=== PATIENT | female | born 1960 | race Caucasian/White ===

== ENCOUNTER 2017-06-24 21:06 | Emergency (ER) | payer OTHER ==
[~2017-06-24] VITALS: Ht 162.6 cm; Wt 126.3 kg
[~2017-06-24 21:06] MED LIST: LISI-729 PO; METF-383 PO; SIMV40TA2 PO
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
[2017-06-24 21:20] VITALS: TEMP 37; Ht 162.6 cm; Wt 126.3 kg
[2017-06-24] MEDS ORDERED: SODIUM CHLORIDE 0.9% 1000ML 1,000 ML IV STA (21:21)
[2017-06-24 21:41] LABS: ISTAT CREATININE 1.1 mg/dl (0.6-1.3); ISTAT HEMOGLOBIN 13.3 g/dl (12.0-16.0); ISTAT IONIZED CALCIUM 1.17 mmol/l (1.12-1.32)
[2017-06-24 21:45] LABS: BASO % 0.1 %; BASO ABS # 0.01 K/uL (0-0.2); COMPLETE YES; EOS % 2.1 %; HEMATOCRIT 38.9 % (37-47); IG% 0.1 %; LYMPH % 16.5 %; LYMPH ABS # 1.18 K/uL (1.2-3.4); MEAN CELL VOLUME 84.6 fL (80-100); MEAN CORPUSCULAR HEMOGLOBIN 27.6 pg (25-34); MEAN CORPUSCULAR HGB CONC 32.6 g/dl (32-36); MEAN PLATELET VOLUME 10.5 fL (7.4-10.4); MONO % 9.6 %; NEUT % 71.6 %; PLATELET COUNT 218 K/uL (130-400); WHITE BLOOD COUNT 7.17 K/uL (4.8-10.8)
[2017-06-24 21:53] LABS: BLOOD UREA NITROGEN 14 mg/dl (7-18); BUN/CREATININE RATIO 11.3 (10-20); CALCIUM 9.5 mg/dl (8.5-10.1); CARBON DIOXIDE 27 mmol/L (21-32); CHLORIDE 105 mmol/L (98-107); GLUCOSE 112 mg/dl (70-99); POTASSIUM 3.9 mmol/L (3.5-5.1); SODIUM 139 mmol/L (136-145)
[2017-06-24] MEDS ORDERED: CLR10 PO (21:54)
[2017-06-24] MEDS ORDERED: CLB/200 PO (21:54)
[2017-06-24] MEDS ORDERED: CHOL2000 PO (21:54)
[2017-06-24] MEDS ORDERED: SITA100T3 PO (21:54)
[2017-06-24] MEDS ORDERED: METF-384 PO (21:54)
[2017-06-24] MEDS ORDERED: ASPI81TA28 PO (21:54)
[2017-06-24] MEDS ORDERED: CITA40TA12 PO (21:54)
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
[2017-06-24] MEDS ORDERED: OPTIRAY 320 IV PRN (22:15)
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
[2017-06-24] MEDS ORDERED: OXYC1TAB3 PO (23:13)
[2017-06-24] MEDS ORDERED: OXYCODONE IR HOME PACK PO ONE (23:15)
[2017-06-25 00:17] VITALS: O2SAT 97
[2017-06-25 00:27] VITALS: BP 130/56; PULSE 98
== END 2017-06-25 00:28 | disposition home or self-care (01) ==
LOC: EDBD 21:06 → C.EDB 21:07
DX: S20.219A Contusion of unspecified front wall of thorax, initial encounter (principal); S10.93XA Contusion of unspecified part of neck, initial encounter; V43.52XA Car driver injured in collision with other type car in traffic accident, initial encounter; E11.9 Type 2 diabetes mellitus without complications; Z79.82 Long term (current) use of aspirin; Z79.84 Long term (current) use of oral hypoglycemic drugs; Z79.899 Other long term (current) drug therapy; Z88.8 Allergy status to other drugs, medicaments and biological substances; Z82.49 Family history of ischemic heart disease and other diseases of the circulatory system

== ENCOUNTER → 2017-08-08 | Outpatient (CLI) | payer OTHER ==
[~2017-08-08] MED LIST changes: +ASPI81TA28 PO; +CHOL2000 PO; +CITA40TA12 PO; +CLB/200 PO; +CLR10 PO; -METF-383 PO; +METF-384 PO; +OXYC1TAB3 PO; +SITA100T3 PO
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
== END | disposition home or self-care (01) ==
LOC: C.RADBC 09:31
PROVIDERS: ATTEND Orthopaedic Surgery Orthopaedic Surgery of the Spine
DX: M25.551 Pain in right hip (principal); M16.11 Unilateral primary osteoarthritis, right hip

== ENCOUNTER 2017-09-26 23:05 | Emergency (ER) | payer OTHER ==
[~2017-09-26] VITALS: Ht 162.6 cm; Wt 109.0 kg
[2017-09-26 23:11] VITALS: TEMP 36.9; Ht 162.6 cm; Wt 109.0 kg
[2017-09-27] MEDS ORDERED: OXYCODONE/ACETAMINOPHEN 5-325 TAB PO ONE ×2 (00:15→01:45)
--- NOTE | 2017-09-27 00:20 | EMERGENCY ROOM VISIT NOTE ---
History Report prepared by Elba: Ham Ruelas Under the Supervision of: Dr. Koffi Mcmahan M.D. First contact with patient: 23:35 Chief Complaint: KNEEPAIN Stated Complaint: SEVERE PAIN BEHIND RT KNEE, MID THIGH TO MID CALF History of Present Illness The patient is a 57 year old female who presents to the Emergency Room with complaints of constant right knee pain beginning two weeks ago. The patient states that her knee pain is in her right leg, located between her mid thigh and mid calf. She notes that she has difficulty bending her knee, and when she does bend her knee, it feels as though someone is "stabbing a knife into it." The patient states that she had shoulder surgery last month and spent a large amount of time sitting in a recliner. She notes that her pain has been gradually worsening since then and rates it as a 9/10. She reports that she works during the day and primarily sits, but states that she often has to get up from her chair many times throughout work. She notes that when she gets up from her chair, it feels like her knee is "going to give out." She reports that she was unable to become comfortable in bed due to her knee pain, prompting her to come into the emergency department tonight. The patient states that she took tramadol for the pain with no relief to her symptoms. She notes that she has a history of arthritis in both knees and is not on any blood thinners. She denies any falls. Source of History: patient Onset: 2 weeks ago Position: knee (right) Symptom Intensity: 9/10 Quality: stabbing Timing: constant Modifying Factors (Worsening): movement (bending) Review of Systems See HPI for pertinent positives and negatives. A total of ten systems were reviewed and were otherwise negative. Past Medical & Surgical Medical Problems: (1) Arthritis (2) Diabetes mellitus Surgical Problems: (1) Hx of shoulder surgery Family History FH: heart disease FATHER Social History Smoking Status: Never Smoker Marital Status: single Occupation Status: employed Current/Historical Medications Scheduled Aspirin (Aspirin Ec), 162 MG PO DAILY Celecoxib (CeleBREX), 200 MG PO DAILY Cholecalciferol (Vitamin D3), 4,000 INTER.UNIT PO DAILY Citalopram Hydrobromide (Celexa), 40 MG PO DAILY Lisinopril (Zestril), 5 MG PO DAILY Loratadine (Claritin), 10 MG PO DAILY Metformin Hcl (Glucophage), 1,000 MG PO BID Simvastatin (Zocor), 40 MG PO HS Sitagliptin Phosphate (Januvia), 100 MG PO DAILY Scheduled PRN Oxycodone Immediate Rel Tab (Roxicodone Ir), 1-2 TAB PO Q4H PRN for Severe Pain Oxycodone Ir (Roxicodone Ir), 1-2 TAB PO Q4H PRN for Pain Allergies Coded Allergies: Pseudoephedrine (Verified Allergy, Unknown, HIVES, 09/27/17) Physical Exam Vital Signs Date Time Temp Pulse Resp B/P (MAP) Pulse Ox O2 Delivery O2 Flow Rate FiO2 09/27/17 05:31 89 18 132/67 95 09/27/17 03:42 98 18 141/87 99 Room Air 09/27/17 02:56 94 22 126/65 5 Room Air 09/27/17 01:16 105 20 111/84 96 Room Air 09/26/17 23:11 36.9 101 20 143/82 94 Room Air Physical Exam GENERAL: Awake, alert, appears uncomfortable, in no distress HENT: Normocephalic, atraumatic. Oropharynx unremarkable. EYES: Normal conjunctiva. Sclera non-icteric. NECK: Supple. No nuchal rigidity. FROM. No JVD. RESPIRATORY: Clear to auscultation. CARDIAC: Regular rate, normal rhythm. Extremities warm and well perfused. Pulses equal. ABDOMEN: Soft, non-distended. No tenderness to palpation. No rebound or guarding. No masses. RECTAL: Deferred. MUSCULOSKELETAL: Chest examination reveals no tenderness. The back is symmetrical on inspection without obvious abnormality. There is no CVA tenderness to palpation. No joint edema. LOWER EXTREMITIES: Calves are equal size bilaterally and non-tender. No discoloration. Mild swelling on distal right lateral thigh, mild swelling to the popliteal fossa, tenderness along posterior aspect of distal thigh, popliteal fossa, and upper calf. Compartment's soft. Distal pulse, motor, sensory intact. Cap refill brisk. NEURO: Normal sensorium. No sensory or motor deficits noted. SKIN: No rash or jaundice noted. Medical Decision & Procedures ER Provider Diagnostic Interpretation: Radiology results as stated below per my review and radiologist interpretation: US VENOUS RIGHT LOWER EXTREMITY No DVT demonstrated. Radiologist: Yee Kelley M.D. FEMUR X-RAY: No fracture, dislocation, mild soft tissue swelling. KNEE X-RAY: No fracture, dislocation, no significant knee effusion, mild soft tissue swelling. STATrad: Preliminary Findings Only See Final Report For Complete Findings CTA CHEST: No evidence of thoracic aortic aneurysm or dissection. Normal caliber main pulmonary artery. Normal heart size with mild coronary atherosclerosis. No pericardial effusion. Old granulomatous disease with calcified right hilar lymph nodes and calcified granuloma in the right upper lobe. No airspace consolidation, pleural effusion, or pneumothorax. No acute osseous findings. CTA OTHER - ABD/PEL WITH RUNOFF: No evidence of abdominal aortic aneurysm or dissection. Normal lower extremity runoff bilaterally. Status post cholecystectomy. Splenic calcifications compatible with old granulomatous disease. Liver, pancreas, adrenal glands are unremarkable. Symmetric renal enhancement. No hydronephrosis. Normal appendix. No bowel obstruction or diverticulitis. Normal uterus and urinary bladder. No acute osseous findings. Small effusion of the right knee joint. Laboratory Results 09/27/17 02:40 Red Blood Count 4.30, Mean Corpuscular Volume 82.8, Mean Corpuscular Hemoglobin 27.0, Mean Corpuscular Hemoglobin Concent 32.6, Mean Platelet Volume 10.6, Neutrophils (%) (Auto) 68.5, Lymphocytes (%) (Auto) 18.4, Monocytes (%) (Auto) 10.7, Eosinophils (%) (Auto) 1.9, Basophils (%) (Auto) 0.2, Neutrophils # (Auto ) 6.29, Lymphocytes # (Auto) 1.69, Monocytes # (Auto) 0.98, Eosinophils # (Auto ) 0.17, Basophils # (Auto) 0.02 09/27/17 02:40 Test 09/27/17 02:40 White Blood Count 9.18 K/uL (4.8-10.8) Red Blood Count 4.30 M/uL (4.2-5.4) Hemoglobin 11.6 g/dL (12.0-16.0) Hematocrit 35.6 % (37-47) Mean Corpuscular Volume 82.8 fL (80-100) Mean Corpuscular Hemoglobin 27.0 pg (25-34) Mean Corpuscular Hemoglobin Concent 32.6 g/dl (32-36) Platelet Count 269 K/uL (130-400) Mean Platelet Volume 10.6 fL (7.4-10.4) Neutrophils (%) (Auto) 68.5 % Lymphocytes (%) (Auto) 18.4 % Monocytes (%) (Auto) 10.7 % Eosinophils (%) (Auto) 1.9 % Basophils (%) (Auto) 0.2 % Neutrophils # (Auto) 6.29 K/uL (1.4-6.5) Lymphocytes # (Auto) 1.69 K/uL (1.2-3.4) Monocytes # (Auto) 0.98 K/uL (0.11-0.59) Eosinophils # (Auto) 0.17 K/uL (0-0.5) Basophils # (Auto) 0.02 K/uL (0-0.2) RDW Standard Deviation 48.4 fL (36.4-46.3) RDW Coefficient of Variation 15.9 % (11.5-14.5) Immature Granulocyte % (Auto) 0.3 % Immature Granulocyte # (Auto) 0.03 K/uL (0.00-0.02) Anion Gap 9.0 mmol/L (3-11) Est Creatinine Clear Calc Drug Dose 69.8 ml/min Estimated GFR () 67.0 Estimated GFR (Non- 57.8 BUN/Creatinine Ratio 14.8 (10-20) Calcium Level 9.2 mg/dl (8.5-10.1) Laboratory results reviewed by me Medications Administered Medications (Trade) Dose Ordered Sig/Bernadette Route Start Time Stop Time Status Last Admin Dose Admin Oxycodone/ Acetaminophen (Percocet 5-325mg Tab) 1 tab NOW ONCE PO 09/27/17 00:15 09/27/17 00:16 DC 09/27/17 00:10 1 TAB Oxycodone/ Acetaminophen (Percocet 5-325mg Tab) 1 tab NOW ONCE PO 09/27/17 01:45 09/27/17 01:46 DC 09/27/17 01:44 1 TAB Sodium Chloride 1,000 ml @ 999 mls/hr Q1H1M STAT IV 09/27/17 02:20 09/27/17 03:20 DC 09/27/17 02:44 999 MLS/HR ED Course 2341: The patient was evaluated in room C1. A complete history and physical exam was performed. 0015: Oxycodone/Acetaminophen 1 tab PO 0145: Oxycodone/Acetaminophen 1 tab PO 0219: Bedside US of popliteal fossa with ?1.5cm popliteal a. aneurysm. Medical Decision I reviewed the patient's past medical history, medications, and the nursing notes as described above. Differential diagnoses include: DVT, musculoskeletal strain, meniscal injury, muscle tear, cyst, and aneurysm. The patient is a 57-year-old woman past medical history of arthritis and recent rotator cuff surgery last month for calcified tendinitis who presents emergency Department with worsening right knee pain for the past several weeks in the setting of spending several weeks with minimal mobility given her recent surgery. However this pain in the back of her knee in particular has been worsening with swelling in that area. Patient has strong distal pulses, warm toes, normal color and cap refill, motor and sensory intact. Plain films mild soft tissue swelling but otherwise unremarkable unremarkable. Formal DVT duplex with preliminary stat read read as no DVT. I reassessed the patient and did a bedside ultrasound of her popliteal fossa and appreciated what appears to be ? 1.5 cm dilation of the popliteal artery with pulsatile flow on color Doppler. Given increased risk of central aneurysm in setting of peripheral aneurysm, CTA of Thoracic and abdominal aorta with run-off ordered. Preliminary STAT-rad read shows normal vascularity. Given no signs of ischemia and reassuring CTA, emergent process unlikely. Patient will f/u with orthopedist, Dr. Catalan, as scheduled next week for re-evaluation. Findings and plan for follow-up reviewed with patient. Patient agreeable and d/c'd per discharge instructions. Medication Reconcilliation Current Medication List: was personally reviewed by me Blood Pressure Screening Patient's blood pressure: Normal blood pressure Impression Primary Impression: Popliteal fullness Additional Impression: Posterior right knee pain Scribe Attestation The scribe's documentation has been prepared under my direction and personally reviewed by me in its entirety. I confirm that the note above accurately reflects all work, treatment, procedures, and medical decision making performed by me. Departure Information Dispostion Home / Self-Care Prescriptions Oxycodone Ir (Roxicodone Ir) 5 Mg Tab 1-2 TAB PO Q4H Y for Pain, #10 TAB Prov: Koffi Mcmahan M.D. 11/1/17 Referrals Judy Capps D.O. (PCP) Patient Instructions Cyst Nick Popliteal, Knee Pain, [facility] Additional Instructions Please follow up with your orthopedist in the next week for re-evaluation and possible formal arterial ultrasound. The exact cause of your symptom is unclear at this time. However, your exam, xrays, venous duplex ultrasound, CTA of your aorta and legs , lab results did not show signs of an emergent condition at this time. Continue your current medications. Oxycodone for breakthrough pain as needed. Return to the emergency department for worsening symptoms as described in the accompanying instructions. Problem Qualifiers
[2017-09-27] MEDS ORDERED: SODIUM CHLORIDE 0.9% 1000ML 1,000 ML IV STA (02:20)
[2017-09-27 02:51] LABS: BASO % 0.2 %; BASO ABS # 0.02 K/uL (0-0.2); COMPLETE YES; EOS % 1.9 %; HEMATOCRIT 35.6 % (37-47); IG% 0.3 %; LYMPH % 18.4 %; LYMPH ABS # 1.69 K/uL (1.2-3.4); MEAN CELL VOLUME 82.8 fL (80-100); MEAN CORPUSCULAR HGB CONC 32.6 g/dl (32-36); MEAN PLATELET VOLUME 10.6 fL (7.4-10.4); MONO % 10.7 %; NEUT % 68.5 %; PLATELET COUNT 269 K/uL (130-400); WHITE BLOOD COUNT 9.18 K/uL (4.8-10.8)
[2017-09-27 03:08] LABS: BUN/CREATININE RATIO 14.8 (10-20); CALCIUM 9.2 mg/dl (8.5-10.1); CREATININE 1.06 mg/dl (0.60-1.20); POTASSIUM 4.2 mmol/L (3.5-5.1)
[2017-09-27] MEDS ORDERED: OXYC1TAB3 PO (05:14)
[2017-09-27 05:31] VITALS: BP 132/67; PULSE 89; O2SAT 95
--- NOTE | 2017-09-27 06:29 | DIAGNOSTIC IMAGING REPORT ---
ULTRASOUND R VENOUS DOPP LOWER EXT UNILAT CLINICAL HISTORY: Right leg pain and swelling COMPARISON STUDY: No previous studies for comparison. FINDINGS: Real-time and color flow Doppler imaging were performed. Flow was seen within the femoral, popliteal and calf veins with no intraluminal thrombus demonstrated. The saphenous vein is patent. IMPRESSION: No evidence of right lower extremity DVT. Electronically signed by: Ronal Tovar M.D. 09/27/2017 6:28 AM Dictated Date/Time: 09/27/2017 6:27 AM
--- NOTE | 2017-09-27 06:34 | DIAGNOSTIC IMAGING REPORT ---
R FEMUR 2 VIEWS ROUTINE CLINICAL HISTORY: Right thigh pain and swelling. COMPARISON: None. DISCUSSION: No fractures are visualized. No destructive lesions are evident. IMPRESSION: No fractures identified. No destructive lesions are visualized on conventional radiographic imaging Electronically signed by: Ronal Tovar M.D. 09/27/2017 6:33 AM Dictated Date/Time: 09/27/2017 6:33 AM
--- NOTE | 2017-09-27 06:55 | DIAGNOSTIC IMAGING REPORT ---
CT ANGIO AA MANUEL LE RUNOFF CT DOSE: 4423.12 mGy.cm CLINICAL HISTORY: Severe right leg pain. Possible arterial occlusion. TECHNIQUE: The patient was scanned in a dynamic helical fashion during intravenous administration 1 through 19 cc Optiray 320. Arterial phase imaging was performed. MIP imaging was acquired. A dose lowering technique was utilized adhering to the principles of ALARA. COMPARISON STUDY: None. FINDINGS: The visualized portions of the lung bases reveal dependent atelectasis. No hepatic masses are visualized this arterial phase study. Mild hepatic steatosis is suspected. The gallbladder surgically absent. No splenic masses are visualized. No pancreatic masses are visualized. No adrenal masses are visualized. No renal masses are visualized this arterial phase study. There are no transition zones indicate bowel obstruction. The appendix appears normal. There is no acute diverticulitis. There is no free intraperitoneal air. There is no free fluid. There are no pathologic pelvic masses. There is a tiny fat-containing right inguinal hernia. There is no evidence of abdominal aortic aneurysm or dissection. There is no evidence of celiac or superior mesenteric artery stenosis. There are 2 main left renal arteries and one main right renal artery. There is no renal artery stenosis. Inferior mesenteric artery is patent. There is no evidence for iliac artery stenosis. On the right, there is no evidence of common femoral artery superficial femoral artery or popliteal artery stenosis. There is three-vessel runoff to the ankle. On the left, there is no evidence of common femoral, superficial femoral, or popliteal artery stenosis. There is three-vessel runoff to the ankle. There is a right knee joint effusion. IMPRESSION: 1. No evidence of abdominal aortic aneurysm or dissection 2. No evidence of superior mesenteric celiac or renal artery stenosis 3. No evidence of iliac or lower extremity arterial stenosis. 4. Right knee joint effusion Electronically signed by: Ronal Tovar M.D. 09/27/2017 6:54 AM Dictated Date/Time: 09/27/2017 6:43 AM
--- NOTE | 2017-09-27 07:04 | DIAGNOSTIC IMAGING REPORT ---
RIGHT KNEE 3 VIEWS CLINICAL HISTORY: Right knee pain and swelling. FINDINGS: AP, crosstable lateral, and sunrise views of the right knee are obtained. No prior studies are available for comparison at the time of dictation. The skeletal structures are osteopenic. No fracture is seen. There is mild tricompartmental degenerative joint space narrowing. A joint effusion is noted. The overlying soft tissues are within normal limits. IMPRESSION: Joint effusion with no acute bony abnormality identified. Electronically signed by: Johan Brothers M.D. 09/27/2017 7:03 AM Dictated Date/Time: 09/27/2017 7:01 AM
--- NOTE | 2017-09-27 07:19 | DIAGNOSTIC IMAGING REPORT ---
CT ANGIOGRAM OF THE CHEST WITHOUT A WITH CONTRAST for DISSECTION CLINICAL HISTORY: Upper chest pain, possible dissection. Pain extending to the leg. COMPARISON STUDY: Chest CT dated 06/24/2017 TECHNIQUE: The patient was scanned in a dynamic helical fashion during the intravenous administration of 119 cc of Optiray 320. MIP imaging was performed. A dose reduction technique was utilized adhering to the principles of ALARA FINDINGS: Unenhanced images of the chest reveal no evidence of acute aortic hematoma. The thyroid gland is unremarkable in appearance. There is no evidence of thoracic aortic aneurysm or dissection. There are coronary artery calcifications present. There are no pulmonary artery filling defects to indicate acute pulmonary embolism. No pleural effusions are visualized. There is no focal pulmonary consolidation. There are dependent atelectatic changes. There is a calcified right upper lobe granuloma. There is no pathologic axillary lymphadenopathy. There are calcified right hilar and mediastinal lymph nodes. IMPRESSION: 1. No evidence of thoracic aortic aneurysm or dissection 2. Old postinflammatory changes with calcified lymph nodes and a calcified right upper lobe granuloma Electronically signed by: Ronal Tovar M.D. 09/27/2017 7:18 AM Dictated Date/Time: 09/27/2017 7:09 AM
== END 2017-09-27 05:31 | disposition home or self-care (01) ==
LOC: C.EDB 23:06 → C.EDA 09-27 05:31
DX: R22.41 Localized swelling, mass and lump, right lower limb (principal); M25.561 Pain in right knee; M17.0 Bilateral primary osteoarthritis of knee; E11.9 Type 2 diabetes mellitus without complications; Z79.82 Long term (current) use of aspirin; Z79.84 Long term (current) use of oral hypoglycemic drugs

== ENCOUNTER 2017-12-21 06:16 | Inpatient (IN) | payer OTHER ==
[2017-12-05 15:05] VITALS: BMI 41.0
--- NOTE | 2017-12-05 15:42 | PAT Medication Instructions ---
Service Date Dec 05, 2017. Current Home Medication List Aspirin (Aspirin Ec), 162 MG PO QAM Celecoxib (CeleBREX), 200 MG PO QAM Cholecalciferol (Vitamin D3), 4,000 INTER.UNIT PO QAM Citalopram Hydrobromide (Celexa), 40 MG PO HS Lisinopril (Zestril), 5 MG PO QAM Loratadine (Claritin), 10 MG PO QAM Metformin Hcl (Glucophage), 1,000 MG PO BID Simvastatin (Zocor), 40 MG PO HS Sitagliptin Phosphate (Januvia), 100 MG PO QAM [[place]], 1 TAB PO Q6H PRN for rerecording mixer Instructions For Your Scheduled Surgery -Contact your surgeon for instructions for: Aspirin (Aspirin Ec), 162 MG PO QAM Celecoxib (CeleBREX), 200 MG PO QAM - Hold the following medications 48 hours prior to surgery--stop taking 12/19: Metformin Hcl (Glucophage), 1,000 MG PO BID - Hold the following medications the morning of surgery: Sitagliptin Phosphate (Januvia), 100 MG PO QAM Lisinopril (Zestril), 5 MG PO QAM Loratadine (Claritin), 10 MG PO QAM Cholecalciferol (Vitamin D3), 4,000 INTER.UNIT PO QAM - Take the following medications the morning of surgery with a sip of water: [[place]], 1 TAB PO Q6H PRN for RN (if needed, can be taken up to four hours before surgery) - Take the following medications as scheduled the night before surgery: [[place]], 1 TAB PO Q6H PRN for RN (if needed) Simvastatin (Zocor), 40 MG PO HS Citalopram Hydrobromide (Celexa), 40 MG PO HS If you have any questions please call us at [phone] or [phone] or [phone]
[2017-12-05 16:11] LABS: BASO % 0.2 %; BASO ABS # 0.01 K/uL (0-0.2); EOS % 2.8 %; EOS ABS # 0.13 K/uL (0-0.5); HEMATOCRIT 34.7 % (37-47); HEMOGLOBIN 10.8 g/dL (12.0-16.0); IG# 0.01 K/uL (0.00-0.02); LYMPH % 23.8 %; LYMPH ABS # 1.11 K/uL (1.2-3.4); MEAN CELL VOLUME 84.4 fL (80-100); MEAN CORPUSCULAR HEMOGLOBIN 26.3 pg (25-34); MEAN CORPUSCULAR HGB CONC 31.1 g/dl (32-36); MEAN PLATELET VOLUME 10.8 fL (7.4-10.4); MONO % 8.2 %; MONO ABS # 0.38 K/uL (0.11-0.59); NEUT % 64.8 %; NEUT ABS # 3.02 K/uL (1.4-6.5); PLATELET COUNT 182 K/uL (130-400); RED CELL DISTRIBUTION WIDTH CV 16.3 % (11.5-14.5); RED CELL DISTRIBUTION WIDTH SD 50.1 fL (36.4-46.3); WHITE BLOOD COUNT 4.66 K/uL (4.8-10.8)
[2017-12-05 16:44] LABS: ALBUMIN 3.3 gm/dl (3.4-5.0); CALCIUM 8.9 mg/dl (8.5-10.1); CREATININE 1.11 mg/dl (0.60-1.20)
[2017-12-06 07:13] LABS: HEMOGLOBIN A1C 6.3 % (4.5-5.6)
--- NOTE | 2017-12-12 13:23 | HISTORY & PHYSICAL EXAMINATION ---
DATE OF ADMISSION: 12/21/2017 CHIEF COMPLAINT: Right knee pain. HISTORY OF PRESENT ILLNESS: Makenzie is a 57-year-old female with a 6-month history of right knee pain. The patient rates her pain at 8-9/10. She has pain with her daily activities. She has limited standing and walking tolerance. Pain is worse with weightbearing. The patient has had injections, bracing, Celebrex and Reeds through the years without relief. She has failed conservative treatment and is scheduled for a right total knee replacement. PAST MEDICAL HISTORY: Diabetes with an A1c of 6.5, hypertension, and hypercholesterolemia. She denies heart disease or DVT. PAST SURGICAL HISTORY: Right shoulder surgery, trigger finger release, cholecystectomy and left shoulder surgery. ALLERGIES: SUDAFED. REVIEW OF SYSTEMS: See HPI. Ten other systems reviewed, all negative. PHYSICAL EXAMINATION: VITAL SIGNS: Height 5 feet 4 inches, weight 238 pounds, and BMI is 41. GENERAL: This is a well-developed and well-nourished female, who is alert and oriented x3. Mood and affect are appropriate. HEENT: Normocephalic and atraumatic. Mucous membranes are moist and intact. NECK: Supple without lymphadenopathy. HEART: Regular rate and rhythm without murmurs, rubs or gallops. LUNGS: Clear to auscultation without wheezes or rhonchi. ABDOMEN: Soft and nontender. Bowel sounds are equal and active. EXTREMITIES: No ecchymosis, redness or warmth. She has varus deformity. Range of motion is from 0-110 degrees with no laxity. She has no effusion. She is neurovascularly intact. X-RAY EXAMINATION: AP and lateral views show joint space narrowing and osteophyte formation. IMPRESSION: Degenerative joint disease, right knee. PLAN: The patient will be admitted for a right total knee arthroplasty. We will plan on aspirin for DVT prophylaxis. The patient will use [facility]. Referral has been placed preoperatively.
[2017-12-21] VITALS (10 sets, daily range): BP systolic 95–144; BP diastolic 60–77; PULSE 52–77; TEMP 36.7–36.9; O2SAT 96–100; Ht 162.6 cm; Wt 108.4 kg
[~2017-12-21] VITALS: Ht 162.6 cm; Wt 108.4 kg
[~2017-12-21 06:16] MED LIST changes: +ACETAMINOPHEN 500 MG TAB PO SCH; +CEFAZOLIN 2000MG IV PUSH 10 ML IV SCH; +CeleBREX 200 MG CAP PO SCH; +DEXAMETHASONE 4 MG TAB PO SCH; +FAMOTIDINE 20 MG TAB PO SCH; +GABAPENTIN 300 MG CAP PO SCH; +LACTATED RINGER'S 1000ML 1,000 ML IV SCH; +LACTATED RINGER'S 1000ML 500 ML IV SCH; +LACTATED RINGER'S 1000ML IV SCH; +METOCLOPRAMIDE HCL 10 MG TAB PO SCH; +NORCO PO; -OXYC1TAB3 PO; +ROPIVACAINE 5MG/ML 30 ML 150 MG, BUPIVACAINE 0.5% MPF INJ 30 ML, EpINEphrine HCL INJ 0.... INFIL SCH
[2017-12-21] MEDS ORDERED: BUPIVACAINE 0.25% 30 ML VIAL ONE (06:34)
[2017-12-21] MEDS ORDERED: BUPIVACAINE 0.5 % 5 MG/1 ML PF 10ML VIAL ONE (06:34)
--- NOTE | 2017-12-21 06:59 | History & Physical Bridge Note ---
H&P Re-Evaluation Bridge Note: I have examined the patient, reviewed the History & Physical and in the interval since the performance of the History & Physical I have noted the following changes of clinical significance: No changes noted
[2017-12-21] MEDS ORDERED: BACITRACIN 50000 UNIT VIAL ONE (07:01)
[2017-12-21] MEDS ORDERED: POVIDONE-IODINE OP SOLN 30 ML BTL ONE (07:01)
[2017-12-21] MEDS ORDERED: ORTHO JOINT ANESTHETIC ONE (07:01)
[2017-12-21] MEDS ORDERED: FENTANYL CITRATE INJ 50 MCG/1 ML 2 ML VIAL ONE (07:08)
[2017-12-21] MEDS ORDERED: MIDAZOLAM HCL 1 MG/ML 2ML VIAL ONE ×2 (07:08)
[2017-12-21] MEDS ORDERED: EpHEDrine SULFATE 50MG/5ML SYR ONE (07:24)
[2017-12-21] MEDS ORDERED: PROPOFOL IV EMULSION 10 MG/ML 20 ML VIAL IV ONE ×2 (07:24→09:52)
[2017-12-21] MEDS ORDERED: LIDOCAINE HCL 2% 2 ML VIAL (20MG/ML) ONE (07:24)
[2017-12-21] MEDS ORDERED: PHENYLEPHRINE 100MCG/ML 5ML SYR ONE (07:24)
[2017-12-21] MEDS: TRANEXAMIC ACID INJ 1,000 MG in SYRINGE 0 ML IV SCH ×2 (07:54→12:35)
[2017-12-21] MEDS ORDERED: HYDROmorphone INJ 2 MG/ML SYR/VIAL IV PRN (08:30)
[2017-12-21] MEDS ORDERED: PHENYLEPHRINE 100MCG/ML 5ML SYR IV PRN (08:30)
[2017-12-21] MEDS ORDERED: KETOROLAC TROMETHAMINE 30 MG/ML VIAL IV. PRN (08:30)
[2017-12-21] MEDS ORDERED: ONDANSETRON INJ 2 MG/ML 2 ML VIAL IV PRN ×2 (08:30→10:15)
[2017-12-21] MEDS ORDERED: ATROPINE SULFATE 0.1 MG/ML 5ML SYR IV PRN (08:30)
--- NOTE | 2017-12-21 09:33 | [facility] Post Operative Brief Note ---
Immediate Operative Summary Operative Date Dec 21, 2017. Pre-Operative Diagnosis Right Knee Degenerative Joint Disease Post-Operative Diagnosis Right Knee Degenerative Joint Disease Procedure(s) Performed Right Total Knee Arthroplasty, Cemented Surgeon Dr. Catalan Skein Bander Surgeon(s) Tao Roper PA-C Estimated Blood Loss 10 mL Findings Consistent with Post-Op Diagnosis Specimens A: Right knee bone and tissue Anesthesia Type MAC Spinal Regional Complication(s) none Disposition Disposition: Recovery Room / PACU
--- NOTE | 2017-12-21 09:41 | OPERATIVE REPORT ---
DATE OF OPERATION: 12/21/2017 PREOPERATIVE DIAGNOSIS: Osteoarthritis right knee. POSTOPERATIVE DIAGNOSIS: Osteoarthritis right knee. PROCEDURE: Right total knee arthroplasty. SURGEON: Dilip Catalan MD. CUSTOMS MANAGER: JOLANTA Nguyen. ANESTHESIA: Spinal COMPLICATIONS: None. IMPLANTS USED: IMPLANTS USED: Femoral size 3, tibial size 2 patella size 31, patella size 9. DISPOSITION: Recovery room, stable. DESCRIPTION OF PROCEDURE: Following induction of spinal anesthesia, the patient's right leg was prepped and draped in the usual sterile manner. Limb was exsanguinated with an Esmarch bandage and tourniquet was inflated to 350 mmHg. A longitudinal incision was made anteriorly. Subcutaneous tissue was sharply dissected. Electrocautery was used for hemostasis. Prepatellar bursa was incised and median parapatellar incision was performed. Patella was everted and the knee was flexed. Fat pad was removed to aid in visualization and the anterior and posterior cruciate ligaments were removed. The medial face of the tibia was cleared of soft tissue first with a Bovie and a Viera elevator. This tissue was retracted posteriorly using a blunt Hohmann. A Ayala retractor was used to expose the synovium above on the anterior aspect of the femur and this was removed down to bone. The PSI guide was placed on the distal femur and two pins were placed anteriorly and kept in position and two additional pins were placed distally and removed. The distal femoral cutting block was placed in position and the distal femoral cut was used in the +0 setting. Next, the cutting block was removed and the 3 femoral block was placed in the distal end of the femur. Care was taken to ensure appropriate external rotation and feeler gauge was used to ensure no notching would occur. The femoral block was centered on the distal femur and in the medial and lateral direction and was fixed using two bone screws. The gold pins were then removed. The oscillating saw was used to create the bone cuts and the distal femoral cutting block was removed and the reciprocating saw was used to further trim the femoral cuts as well as a deep in the area for the trochlear groove. Next, posterior condyle remnants were removed. Following this, a meniscal clamp and knife were utilized to remove the anterior portion of both medial and lateral meniscus. The proximal tibia PSI guide was placed into position and the proximal tibial cutting guide was screwed into position. The extra medullary alignment guide was utilized to ensure appropriate alignment. The proximal tibia was cut and the proximal tibial cutting block was removed and this bone fragment was removed. The appropriate guide was used to perform the notch cut on the distal femur and a lamina records officer and a cochlear knife were utilized to finish both medial and lateral meniscectomies to remove any remnants of the posterior or anterior cruciate ligaments. Following this, the distal femoral component was impacted into position and blunt Nelly was used to sublux the tibia anteriorly. The proximal tibia was sized and a size 2 tibial tray was chosen as the size to be used. This was put into position and appropriate external rotation and a double check with extramedullary alignment guide was performed. The canal for the tibial stem was prepared first with a 17 mm drill and then the punch and a mallet and the trial tibial poly was placed. A size 31 was chosen the size to be used. It was brought to extension and the patella was prepared with the patellar reamer. A size 9 component was chosen the size to be used. The trial component was placed and knee was taken through a full range of motion and there was found to be no lateral subluxation of the tibia. No lateral release was required. The trials were all removed. The final components were obtained and assembled. Cement was mixed. The knee was thoroughly irrigated and the ortho mix was injected about the knee joint. The final components were cemented into position. After thoroughly suctioning and drying the bone ends, all excess cement was removed. The knee was held in extension while the cement hardened. The wound was irrigated and closed over a Hemovac drain. #1 Vicryl was used to close the extensor mechanism. Subcutaneous tissues closed using 0 Dexon. Skin was closed with kiel. Sterile dressing of Adaptic, 4 x 4's, sterile Webril, and Jr was applied. The patient tolerated the procedure well. Due to the complex nature of the procedure, the entire surgery was performed with the operational assistance of JOLANTA Nguyen. The workforce development assistant, under direct supervision, was involved in the actual performance of all aspects of the surgical procedure including hemostasis, tissue retraction and incision, instrument management, patient positioning, and wound closure. I attest to the content of the Intraoperative Record and any orders documented therein. Any exception s are noted below.
[2017-12-21] MEDS ORDERED: MoRPHine SULFATE 2 MG/ML CARP IV PRN (10:15)
[2017-12-21] MEDS ORDERED: MAGNESIUM HYDROXIDE SUSP 30 ML UDC PO PRN (10:15)
[2017-12-21] MEDS ORDERED: ALUMINUM/MAGNESIUM/SIMETH (MAALOX MAX) 30 ML UDC PO PRN (10:15)
--- NOTE | 2017-12-21 10:56 | Anesthesiology Progress Note ---
Anesthesia Post Op Note Date & Time Dec 21, 2017 at 10:55 Vital Signs Pain Intensity: 0 Vital Signs Past 12 Hours Date Time Temp Pulse Resp B/P (MAP) Pulse Ox O2 Delivery O2 Flow Rate FiO2 12/21/17 10:50 66 16 104/53 100 Nasal Cannula 4 12/21/17 10:40 65 16 98/56 100 Nasal Cannula 4 12/21/17 10:30 67 13 90/50 100 Oxymask 10 12/21/17 10:20 66 15 100/50 99 Oxymask 10 12/21/17 10:10 68 15 94/41 100 Oxymask 10 12/21/17 10:02 36.5 73 17 98/50 100 Oxymask 10 12/21/17 06:45 36.8 77 20 144/77 100 Room Air Notes Mental Status: alert / awake / arousable, participated in evaluation Pt Amnestic to Procedure: Yes Nausea / Vomiting: adequately controlled Pain: adequately controlled Airway Patency, RR, SpO2: stable & adequate BP & HR: stable & adequate Hydration State: stable & adequate Anesthetic Complications: no major complications apparent
--- NOTE | 2017-12-21 11:06 | DIAGNOSTIC IMAGING REPORT ---
RIGHT KNEE 2 VIEWS History: Right total knee arthroplasty. Degenerative arthritis. Postop. FINDINGS: The patient is status post a right total knee arthroplasty. The hardware is intact. No fracture or dislocation. Surgical drains are in place. IMPRESSION: Right total knee arthroplasty. No evidence for hardware complication. Electronically signed by: Jose Phan M.D. 12/21/2017 11:04 AM Dictated Date/Time: 12/21/2017 11:03 AM
[2017-12-21] MEDS ORDERED: PHARMACY GLYCEMIC MGMT CONSULT PRN (11:59)
[2017-12-21] MEDS ORDERED: INSULIN GLARGINE SOLOSTAR 100 UNITS/ML 3 ML PEN SC ONE (12:00)
--- NOTE | 2017-12-21 12:21 | Pharmacy Progress Note ---
Glycemic Control Intl Consult Date of Service Dec 21, 2017. Scope Glycemic Pharmacist consulted by Graham on 12/21/17 for glycemic control and to write orders per [facility] inpatient glycemic control protocol. Objective Weight (Kilograms): 108.400 Accuchecks BSG (last 24hrs): Test 12/21/17 06:41 12/21/17 10:10 Bedside Glucose 107 mg/dl (70-90) 156 mg/dl (70-90) HbA1c Test 12/05/17 15:54 Hemoglobin A1c 6.3 % (4.5-5.6) H Recent Pertinent Medications Outpatient Anti-diabetic Regimen: * Januvia 100mg PO qAM * Metformin 1000mg PO BID * A1c = 6.3% 12/05/17 Risk Factors for Insulin Resistance: * Steroids: DXM 8mg PO x1 dose pre-op this morning * Infection: on Ancef keeley-op * IVF: NS @ 100mL/hr * Recent Surgery: POD #0 s/p R TKA * Diet: Type 2 diabetic diet Assessment & Plan ASSESSMENT: * Ms Centeno is a 57yo diabetic female s/p right TKA this morning. * As an outpatient, she uses only oral anti-diabetic medications, with an A1c that demonstrates fairly good glycemic control. * Pt rec'd a dose of steroids pre-op today, which is expected to contribute to hyperglycemia. * For now, patient started on basal/bolus insulin regimen to optimize glycemic control during hospital stay. May consider transitioning back to oral medication regimen if BSGs allow. PLAN FOR INPATIENT GLYCEMIC CONTROL: * Holding outpatient oral diabetes medications * May consider resuming once diet is resumed post-op and is well-tolerated * Basal insulin with LANTUS 25 units SQ x1 dose now, then further dosing based on BSG evaluation tomorrow morning * Correctional Insulin with NOVOLOG per scale ACHS or Q6hrs while NPO * Goal Range: Low 110 mg/dL - High 140 mg/dL * Correction Factor: 20 mg/dL/unit * Nutritional / Prandial insulin per carb ratio of 1 unit per 8 grams CHO consumed DISCHARGE PLANNING: * Patient's recent A1c demonstrates adequate glycemic control. Expect that patient may resume home regimen on discharge. * Will continue to follow and update recommendations as needed. * Please note that the plan above was derived based on current level of insulin resistance and hospital stress. These recommendations are appropriate for inpatient admission only. Plan of care upon discharge will need to be reassessed to avoid potential outpatient hypo/hyperglycemia. Thank you.
[2017-12-21] MEDS: SODIUM CHLORIDE 0.9% 1000ML 1,000 ML IV SCH ×2 (13:07→21:10)
[2017-12-21] MEDS: ACETAMINOPHEN 500 MG TAB PO SCH ×2 (13:08→21:10)
[2017-12-21] MEDS: INSULIN ASPART 100 UNITS/ML 3 ML PEN SC SCH ×3 (13:12→21:16)
[2017-12-21] MEDS: CEFAZOLIN IV 2,000 MG in SYRINGE 0 ML IV SCH ×2 (15:57→23:04)
[2017-12-21] MEDS: FERROUS GLUCONATE 324 MG TAB PO SCH (18:05)
[2017-12-21] MEDS: OXYCODONE HCL IR 5 MG TAB (IMMEDIATE RELEASE) PO PRN (19:57)
[2017-12-21] MEDS: CITALOPRAM 40 MG TAB PO SCH (21:10)
[2017-12-21] MEDS: SENNA 8.6 MG TAB PO SCH (21:10)
[2017-12-21] MEDS: SIMVASTATIN 40 MG TAB PO SCH (21:10)
[2017-12-21] MEDS: ASPIRIN 81 MG ECTAB PO SCH (21:10)
[2017-12-21] MEDS: DOCUSATE SODIUM 100 MG CAP PO SCH (21:10)
[2017-12-21] MEDS: TRAMADOL HCL 50 MG TAB PO PRN (22:27)
[2017-12-22 00:10] VITALS: BP 105/65; PULSE 50; TEMP 36.6; O2SAT 98
[2017-12-22 02:50] VITALS: BP 113/73; PULSE 57; TEMP 36.4; O2SAT 97
[2017-12-22] MEDS: OXYCODONE HCL IR 5 MG TAB (IMMEDIATE RELEASE) PO PRN ×5 (04:19→23:48)
[2017-12-22] MEDS: ACETAMINOPHEN 500 MG TAB PO SCH ×3 (05:52→21:24)
[2017-12-22 07:09] LABS: HEMATOCRIT 30.9 % (37-47); HEMOGLOBIN 9.7 g/dL (12.0-16.0); MEAN CELL VOLUME 82.6 fL (80-100); MEAN CORPUSCULAR HEMOGLOBIN 25.9 pg (25-34); MEAN CORPUSCULAR HGB CONC 31.4 g/dl (32-36); PLATELET COUNT 177 K/uL (130-400); RED CELL DISTRIBUTION WIDTH CV 15.5 % (11.5-14.5); RED CELL DISTRIBUTION WIDTH SD 46.8 fL (36.4-46.3); WHITE BLOOD COUNT 9.08 K/uL (4.8-10.8)
[2017-12-22] MEDS: SODIUM CHLORIDE 0.9% 1000ML 1,000 ML IV SCH (07:12)
--- NOTE | 2017-12-22 07:27 | Orthopedic Progress Note ---
Orthopedic Progress Note Date of Service Dec 22, 2017. Subjective Post OP Day: 1 Reports: feeling well Objective N/V intact, dressing C/D/I (Hemovac in place), toes mobile Date Time Temp Pulse Resp B/P (MAP) Pulse Ox O2 Delivery O2 Flow Rate FiO2 12/22/17 07:20 Room Air 12/22/17 02:50 36.4 57 18 113/73 (86) 97 Room Air 12/22/17 00:10 36.6 50 18 105/65 (78) 98 Room Air 12/21/17 19:30 36.9 52 16 115/68 (84) 96 Room Air 12/21/17 19:10 Room Air 12/21/17 15:38 36.8 69 16 107/64 (78) 100 2.0 12/21/17 14:20 68 18 95/60 (72) 100 12/21/17 13:20 67 18 104/62 (76) 100 12/21/17 12:20 36.7 62 17 111/66 (81) 100 Nasal Cannula 2.0 12/21/17 11:55 66 18 113/68 (83) 100 12/21/17 11:26 99 Nasal Cannula 2.0 12/21/17 11:21 36.9 63 17 100/64 (76) 99 Nasal Cannula 2.0 12/21/17 11:20 99 Nasal Cannula 2.0 12/21/17 11:10 66 20 101/54 100 Nasal Cannula 4 12/21/17 11:00 36.0 65 15 103/46 100 Nasal Cannula 4 12/21/17 10:50 66 16 104/53 100 Nasal Cannula 4 12/21/17 10:40 65 16 98/56 100 Nasal Cannula 4 12/21/17 10:30 67 13 90/50 100 Oxymask 10 12/21/17 10:20 66 15 100/50 99 Oxymask 10 12/21/17 10:10 68 15 94/41 100 Oxymask 10 12/21/17 10:02 36.5 73 17 98/50 100 Oxymask 10 Laboratory Results 24 Hours: Test 12/22/17 06:30 Hematocrit 30.9 % Hemoglobin 9.7 g/dL Assessment & Plan Assessment: 57 yo female stable POD #1 s/p right TKA Plan: 1. Med management 2. DVT prophylaxis- ASA, SCDs 3. PT/OT 4. D/C planning- home w/ HH
--- NOTE | 2017-12-22 07:28 | Discharge Instructions ---
Discharge Instructions Date of Service Dec 22, 2017. Admission Reason for Admission: Right Knee Osteoarthritis Discharge Discharge Diagnosis / Problem: Right knee arthritis Discharge Goals Goal(s): Decrease discomfort, Improve function Activity Recommendations Activity Limitations: as noted below Weightbearing Status: Right weightbearing (as tolerated) . Instructions / Follow-Up Instructions / Follow-Up ACTIVITY RECOMMENDATIONS: SELF CARE INSTRUCTIONS AFTER TOTAL KNEE REPLACEMENT A. You may need to continue a physical therapy program after discharge from the hospital. There are several options available to you. Your doctor will assist you in selecting the best one for you. 1. An out-patient facility 2 to 3 times a week for therapy or home therapy. 2. Continue working on all exercises taught to you in the hospital. Your goals should be to increase bending of your knee to 90 degrees and beyond and to fully straighten your knee. B. You may progress at your own pace from walking with a walker or crutches to a cane; then to no assistive devices. C. Make walking a part of your daily routine. Be up as much as comfortable with rest periods throughout the day. Rest with leg elevation is very important. Use the ice wrap frequently for the first 3-4 weeks. D. There are no restrictions on activities. You may ride in a car, shop, participate in java security engineer and all social activities. E. Wear the long elastic stockings (MEME hose) 20 hours a day for 2 weeks after surgery. They can be removed several times a day for laundering and for a bath. F. You may shower, no tub baths until cleared by your doctor. SPECIAL CARE INSTRUCTIONS: VERY IMPORTANT TO READ AND REVIEW A. There are a few signs you need to watch for after you are home. Call [facility] if you notice any of the followin. Increased severe knee pain. Some pain is expected especially when you exercise. 2. Increased swelling in your leg or knee; pain or swelling of the calf muscle in either lower leg. 3. Any fluid drainage from the incision. 4. Shortness of breath or chest pain. B. Please call [facility] at if you have any concerns or questions about your operation or recovery. The doctor or his nurse will return your call promptly. C. You must take antibiotics before dental work, bladder, bowel or other surgery. Your doctor will provide you with a permanent care to carry describing this precaution. IMPORTANT: * REMEMBER TO TAKE ASPIRIN, 81 MG, TWICE DAILY FOR 4 WEEKS UNLESS OTHERWISE DIRECTED. THIS IS YOUR BLOOD THINNER. * HIGH RISK PATIENTS MAY BE PRESCRIBED A STRONGER BLOOD THINNER. THIS WILL BE PROVIDED AT DISCHARGE. * CALL IF INCREASED PAIN, REDNESS, DRAINAGE OR FEVER GREATER THAT 101. * WEAR MEME HOSE 20 HOURS PER DAY FOR 2 WEEKS. * YOU HAVE A ZIPLINE CLOSURE SYSTEM ON YOUR WOUND. THIS WILL REMAIN ON FOR 14 DAYS. KEEP THE WOUND COVERED WITH GAUZE OR AN "ABD" TYPE PAD TO PROTECT THE WOUND. YOU MAY SHOWER WITH THIS SYSTEM 72 HOURS AFTER THE DAY OF SURGERY. DO NOT SOAK THE WOUND. DO NOT LET THE SHOWER WATER PRESSURE BEAT ON THE WOUND. CLEAN AROUND THE WOUND ITSELF WITH MILD SOAPS. DO NOT USE ANY OINTMENTS OR CREAMS ON THE WOUND. FOLLOW UP VISIT: If appointment is not already scheduled: Please call [facility] to make a follow-up appointment for 2 weeks after your surgery at . Current Hospital Diet Patient's current hospital diet: Diabetes Type 2 Diet Discharge Diet Recommended Diet: Diabetes Type 2 Diet Procedures Procedures Performed: Right Total Knee Arthroplasty, Cemented Pending Studies Studies pending at discharge: no Laboratory Results Hemoglobin A1c Test 12/05/17 15:54 Range/Units Estimated Average Glucose 134 mg/dl Hemoglobin A1c 6.3 H 4.5-5.6 % Medical Emergencies . Who to Call and When: Medical Emergencies: If at any time you feel your situation is an emergency, please call 911 immediately. . Non-Emergent Contact Non-Emergency issues call your: Surgeon Call Non-Emergent contact if: temperature is above 101.5, your pain is not controlled, wound has increased drainage, wound has increased redness . "Provider Documentation" section prepared by Prashant Montague PA-C. . VTE Core Measure Inpt VTE Proph given/why not?: Other Anticoagulation (ASA), T.E.DTammy Stockings, SCD's [place] Drug Monitoring Program Search Results: patient reviewed within database, no issues identified
[2017-12-22 07:34] LABS: CREATININE 1.01 mg/dl (0.60-1.20); POTASSIUM 4.4 mmol/L (3.5-5.1)
[2017-12-22 07:55] VITALS: BP 106/69; PULSE 48; TEMP 36.8; O2SAT 98
[2017-12-22] MEDS: TRAMADOL HCL 50 MG TAB PO PRN ×3 (08:03→21:24)
[2017-12-22] MEDS: MULTIVITAMIN TAB PO SCH (08:54)
[2017-12-22] MEDS: DOCUSATE SODIUM 100 MG CAP PO SCH ×2 (08:55→21:24)
[2017-12-22] MEDS: LISINOPRIL 5 MG TAB PO SCH (08:55)
[2017-12-22] MEDS: FERROUS GLUCONATE 324 MG TAB PO SCH ×3 (08:55→18:19)
[2017-12-22] MEDS: ASPIRIN 81 MG ECTAB PO SCH ×2 (08:55→21:24)
[2017-12-22] MEDS: LORATADINE 10 MG TAB PO SCH (08:55)
[2017-12-22] MEDS ORDERED: INSULIN GLARGINE SOLOSTAR 100 UNITS/ML 3 ML PEN SC ONE ×2 (09:00→21:00)
[2017-12-22] MEDS ORDERED: SITAGLIPTIN 100 MG TAB PO SCH (09:00)
[2017-12-22] MEDS: INSULIN ASPART 100 UNITS/ML 3 ML PEN SC SCH ×4 (09:00→21:00)
--- NOTE | 2017-12-22 11:26 | Pharmacy Progress Note ---
Pharmacy Glycemic Short Note 2 Date of Service Dec 22, 2017. OUTPATIENT ANTIDIABETIC REGIMEN: * Januvia 100mg PO qAM * Metformin 1000mg PO BID * A1c = 6.3% 12/05/17 ASSESSMENT: * POD # 1 s/p R-TKA. BSG trending downward; 248, 208, 147 mg/dL * Fasting BSG above goal. Will give a one time dose of Lantus 18 units (weight/ stress 2) with Lantus per scale in the evening. * Resume oral outpatient agents per pt tolerating diet and renal function is at baseline. * Tighten CF/CR PLAN FOR INPATIENT GLYCEMIC CONTROL: * Resume Januvia and Metformin * Basal insulin * Lantus 18 units SQ this am * Lantus 0-5 units SQ HS (5 units if BSG is 140 mg/dL or more) * Bolus insulin- tighten * NovoLog per scale ACHS or Q6hrs while NPO * Goal Range: Low 110 mg/dL - High 140 mg/dL * Correction Factor: 18 mg/dL/unit * Nutritional / Prandial insulin per carb ratio of 1 unit per 6 grams CHO consumed PLAN FOR DISCHARGE: * Patient's recent A1c demonstrates adequate glycemic control. Expect that patient may resume home regimen on discharge. * Will continue to follow and update recommendations as needed.
[2017-12-22 12:19] VITALS: BP 95/52; PULSE 55; TEMP 36.6; O2SAT 94
[2017-12-22 15:28] VITALS: BP 98/61; PULSE 60; TEMP 36.7; O2SAT 94
[2017-12-22] MEDS: METFORMIN HCL 500 MG TAB PO SCH (18:19)
[2017-12-22] MEDS: SIMVASTATIN 40 MG TAB PO SCH (21:24)
[2017-12-22] MEDS: CITALOPRAM 40 MG TAB PO SCH (21:24)
[2017-12-22] MEDS: SENNA 8.6 MG TAB PO SCH (21:24)
[2017-12-22 22:55] VITALS: BP 90/59; PULSE 62; TEMP 36.5; O2SAT 96
[2017-12-23] MEDS: MoRPHine SULFATE 4 MG/ML 1 ML CARP\\VIAL IV PRN ×2 (00:03→07:40)
[2017-12-23] MEDS: TRAMADOL HCL 50 MG TAB PO PRN (02:07)
[2017-12-23] MEDS: OXYCODONE HCL IR 5 MG TAB (IMMEDIATE RELEASE) PO PRN (05:52)
[2017-12-23] MEDS: ACETAMINOPHEN 500 MG TAB PO SCH ×2 (05:52→13:59)
[2017-12-23 07:06] VITALS: BP 99/66; PULSE 63; TEMP 36.5; O2SAT 96
[2017-12-23] MEDS: FERROUS GLUCONATE 324 MG TAB PO SCH ×2 (08:52→13:06)
[2017-12-23] MEDS: ASPIRIN 81 MG ECTAB PO SCH (08:52)
[2017-12-23] MEDS: METFORMIN HCL 500 MG TAB PO SCH (08:52)
[2017-12-23] MEDS: LISINOPRIL 5 MG TAB PO SCH (08:53)
[2017-12-23] MEDS: MULTIVITAMIN TAB PO SCH (08:53)
[2017-12-23] MEDS ORDERED: SITAGLIPTIN 100 MG TAB PO SCH (09:00)
[2017-12-23] MEDS: LORATADINE 10 MG TAB PO SCH (09:00)
[2017-12-23] MEDS: INSULIN ASPART 100 UNITS/ML 3 ML PEN SC SCH ×2 (09:00→12:00)
[2017-12-23] MEDS: DOCUSATE SODIUM 100 MG CAP PO SCH (09:02)
--- NOTE | 2017-12-23 11:39 | Orthopedic Progress Note ---
Orthopedic Progress Note Date of Service Dec 23, 2017. Subjective Post OP Day: 2 Reports: feeling well, pain controlled w PO medications, Denies: complaints, chest pain, SOB, nausea / vomiting, light headedness, calf pain Objective calves soft nontender, N/V intact, capillary refill less than 2 sec., dressing C /D/I, incision C/D/I, A&O x3, toes mobile DNVSI, TEDs and SCDs present Date Time Temp Pulse Resp B/P (MAP) Pulse Ox O2 Delivery O2 Flow Rate FiO2 12/23/17 10:00 Room Air 12/23/17 07:06 36.5 63 18 99/66 (77) 96 Room Air 12/22/17 22:55 36.5 62 18 90/59 (69) 96 Room Air 12/22/17 19:50 Room Air 12/22/17 15:28 36.7 60 16 98/61 (73) 94 Room Air 12/22/17 12:19 36.6 55 18 95/52 (66) 94 Room Air Assessment & Plan Assessment: 57 yo female stable POD #2 s/p right TKA- Pain well controlled Tolerating PT well Plan: 1. Med management 2. DVT prophylaxis- ASA, SCDs 3. Outpatient PT/OT 4. D/C planning- home w/ HH today 5. F/U with Dr Catalan in 2 weeks
[2017-12-23] MEDS ORDERED: ONDA8TAB6 PO (11:46)
[2017-12-23] MEDS ORDERED: ASPEC81 PO (11:46)
[2017-12-23] MEDS ORDERED: ULT50X PO (11:46)
[2017-12-23] MEDS ORDERED: FRRG PO (11:46)
[2017-12-23] MEDS ORDERED: RXC5 PO (11:46)
[2017-12-23 13:21] VITALS: BP 99/66; PULSE 63; TEMP 36.5; O2SAT 96
--- NOTE | 2017-12-26 13:01 | DISCHARGE SUMMARY ---
DISCHARGE DIAGNOSIS: Degenerative joint disease, right knee. SECONDARY DIAGNOSES: Diabetes mellitus type 2, hypertension, hypercholesterolemia. CONSULTS: None. COMPLICATIONS: None. PROCEDURES: Right total knee arthroplasty performed by Dr. Catalan on 12/21/2017. BRIEF HISTORY: As dictated in history and physical. HOSPITAL SUMMARY: The patient was admitted on the above-noted date and had the above-noted surgery performed which she tolerated well. On the first postoperative day, she was feeling well. Neurovascularly intact. Dressings clean, dry and intact. Toes were mobile. Vital signs were stable and she was afebrile. Hemoglobin was 9.7 and she was started on physical therapy protocol and continued on DVT prophylaxis and pain management. Plans were for her to go home with home health services. By her second postoperative day, she was feeling well, pain was controlled. Calves were soft and nontender, neurovascularly intact. Dressings clean, dry and intact. Toes were mobile and vital signs were stable. She was progressing with physical therapy and it was felt she could be discharged to home on 12/23/2017. For further review, please see chart. LAB AND X-RAY DATA: As per chart. DISCHARGE INSTRUCTIONS: The patient was discharged to home in satisfactory condition on 12/23/2017. DIET: Diabetic. ACTIVITY: Weightbearing as tolerated right lower extremity. Follow TK instruction sheets and special care instructions as noted. Follow up with Dr. Catalan in 2 weeks. The patient to call for appointment if one has not been made for you. DISCHARGE MEDICATIONS: Aspirin 81 mg p.o. b.i.d., ferrous gluconate 324 mg p.o. t.i.d., Zofran 8 mg p.o. q.8 hours p.r.n., oxycodone 5-10 mg p.o. q.4 hours p.r.n., tramadol 50-100 mg p.o. q.4 hours p.r.n. Resume home meds as listed. Stop taking 162 mg tablet of aspirin and stop taking Faber.
== END 2017-12-23 14:13 | disposition home health service (06) | DRG 470 ==
LOC: C.ACU 06:16 → C.3E 10:08 → CANRESERV 10:45 → ENRESERV 10:45
PROC: 0SRC0J9 Replacement of Right Knee Joint with Synthetic Substitute, Cemented, Open Approach (ICD-10-PCS; principal; 2017-12-21 08:15)
DX: M17.11 Unilateral primary osteoarthritis, right knee (principal); Z68.41 Body mass index [BMI] 40.0-44.9, adult; E11.9 Type 2 diabetes mellitus without complications; G47.33 Obstructive sleep apnea (adult) (pediatric); I10 Essential (primary) hypertension; E78.00 Pure hypercholesterolemia, unspecified; E66.01 Morbid (severe) obesity due to excess calories; Z79.82 Long term (current) use of aspirin; Z79.84 Long term (current) use of oral hypoglycemic drugs; Z79.899 Other long term (current) drug therapy

== ENCOUNTER 2018-07-11 20:20 | Emergency (ER) | payer OTHER ==
[~2018-07-11] VITALS: Ht 162.6 cm; Wt 98.1 kg
[~2018-07-11 20:20] MED LIST changes: -ACETAMINOPHEN 500 MG TAB PO SCH; +ASPI-320 PO; -ASPI81TA28 PO; -CEFAZOLIN 2000MG IV PUSH 10 ML IV SCH; -CeleBREX 200 MG CAP PO SCH; -DEXAMETHASONE 4 MG TAB PO SCH; -FAMOTIDINE 20 MG TAB PO SCH; +FRRG PO; -GABAPENTIN 300 MG CAP PO SCH; -LACTATED RINGER'S 1000ML 1,000 ML IV SCH; -LACTATED RINGER'S 1000ML 500 ML IV SCH; -LACTATED RINGER'S 1000ML IV SCH; -METOCLOPRAMIDE HCL 10 MG TAB PO SCH; -NORCO PO; -ROPIVACAINE 5MG/ML 30 ML 150 MG, BUPIVACAINE 0.5% MPF INJ 30 ML, EpINEphrine HCL INJ 0.... INFIL SCH; +RXC5 PO; +ULT50X PO
[2018-07-11 20:25] VITALS: TEMP 36.9; Ht 162.6 cm; Wt 98.1 kg
[2018-07-11] MEDS ORDERED: OXYCODONE HCL IR 5 MG TAB (IMMEDIATE RELEASE) PO STA (20:56)
[2018-07-11] MEDS ORDERED: KETOROLAC TROMETHAMINE 60 MG/2 ML VIAL IM STA (20:56)
--- NOTE | 2018-07-11 21:19 | DIAGNOSTIC IMAGING REPORT ---
L KNEE 1 OR 2 VIEWS ROUTINE CLINICAL HISTORY: Left knee pain. Evaluate for fracture. COMPARISON: None FINDINGS: Alignment of the left knee is anatomic. No acute fracture is identified. There is mild irregularity of the superior pole of the patella which is chronic. There is no definite joint effusion. Joint spaces are preserved. There is mild osteophytosis of the left knee. A 4 mm round calcific density projects posterior to the joint space on lateral projection. IMPRESSION: 1. No acute fracture or joint effusion of the left knee. 2. Preserved joint spaces with mild osteophytosis within the left knee. 3. 4 mm calcific density which projects posterior to the knee joint on lateral projection. This could reflect a fabella or joint body. Electronically signed by: Bolivar Joseph M.D. 07/11/2018 9:18 PM Dictated Date/Time: 07/11/2018 9:16 PM
[2018-07-11] MEDS ORDERED: PERCOCET HOME PACK PO ONE (21:30)
[2018-07-11] MEDS ORDERED: OXYC-90 PO (21:33)
[2018-07-11 21:52] VITALS: BP 124/76; PULSE 66; O2SAT 98
--- NOTE | 2018-07-11 22:47 | EMERGENCY ROOM VISIT NOTE ---
History Report prepared by [place]: Mary Marte Under the Supervision of: Dr. Grzeogrz Pearza M.D. First contact with patient: 20:51 Chief Complaint: KNEEPAIN Stated Complaint: CAN NOT BEND LEFT KNEE History of Present Illness The patient is a 58 year old female who presents to the Emergency Room with complaints of persistent left knee pain for the past 3 hours. She states she was bending over to plug something in when she felt a "pop" and experienced sudden pain in her knee, which she rates as a 6/10 in severity. Movement worsens her pain. She denies any recent falls or pain in her hip or ankle. She does not believe her knee cap went sideways during the incident. The patient has previously undergone a total knee arthroplasty of the right knee. 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 A total of 10 systems reviewed and were otherwise negative. Past Medical & Surgical Medical Problems: (1) Arthritis (2) Diabetes mellitus (3) Right knee DJD Surgical Problems: (1) Hx of shoulder surgery Family History FH: heart disease FATHER Social History Smoking Status: Never Smoker Alcohol Use: none Drug Use: none Marital Status: single Housing Status: lives alone Occupation Status: employed Current/Historical Medications Scheduled Aspirin (Aspirin EC Low Dose), 81 MG PO BID Celecoxib (CeleBREX), 200 MG PO QAM Cholecalciferol (Vitamin D3), 4,000 INTER.UNIT PO QAM Citalopram Hydrobromide (Celexa), 40 MG PO HS Ferrous Gluconate (Ferrous Gluconate), 324 MG PO TIDM Lisinopril (Zestril), 5 MG PO QAM Loratadine (Claritin), 10 MG PO QAM Metformin Hcl (Glucophage), 1,000 MG PO BID Simvastatin (Zocor), 40 MG PO HS Sitagliptin Phosphate (Januvia), 100 MG PO QAM Scheduled PRN Oxycodone HCl (Oxycodone HCl), 5-10 MG PO Q4H PRN for Pain Oxycodone Ir (Roxicodone Ir), 5 MG PO Q4H PRN for Pain Tramadol HCl (Tramadol HCl), 50-100 MG PO Q4H PRN for Pain Allergies Coded Allergies: Pseudoephedrine (Verified Allergy, Unknown, HIVES, 12/21/17) Physical Exam Vital Signs Date Time Temp Pulse Resp B/P (MAP) Pulse Ox O2 Delivery O2 Flow Rate FiO2 07/11/18 21:52 66 16 124/76 98 07/11/18 20:25 36.9 99 18 153/85 98 Room Air Physical Exam Constitutional: Vital signs reviewed. Musculoskeletal: No peripheral edema. Tenderness with flexion of the left knee , no significant swelling, erythema or increased warmth, normal distal pulses. Integumentary: No cyanosis. Neurological: The patient is awake and alert. No focal deficits. Psychiatric: Normal affect. Medical Decision & Procedures ER Provider Diagnostic Interpretation: Radiology results as stated below per my review and the radiologist's interpretation: L KNEE 1 OR 2 VIEWS ROUTINE CLINICAL HISTORY: Left knee pain. Evaluate for fracture. COMPARISON: None FINDINGS: Alignment of the left knee is anatomic. No acute fracture is identified. There is mild irregularity of the superior pole of the patella which is chronic. There is no definite joint effusion. Joint spaces are preserved. There is mild osteophytosis of the left knee. A 4 mm round calcific density projects posterior to the joint space on lateral projection. IMPRESSION: 1. No acute fracture or joint effusion of the left knee. 2. Preserved joint spaces with mild osteophytosis within the left knee. 3. 4 mm calcific density which projects posterior to the knee joint on lateral projection. This could reflect a fabella or joint body. Electronically signed by: Bolivar Joseph M.D. 07/11/2018 9:18 PM Medications Administered Medications (Trade) Dose Ordered Sig/Bernadette Route Start Time Stop Time Status Last Admin Dose Admin Oxycodone HCl (Roxicodone Immediate Rel Tab) 5 mg NOW STAT PO 07/11/18 20:56 07/11/18 20:58 DC 07/11/18 20:56 5 MG Ketorolac Tromethamine (Toradol Inj) 10 mg NOW STAT IM 07/11/18 20:56 07/11/18 20:58 DC 07/11/18 20:56 10 MG Oxycodone/ Acetaminophen (Percocet 5/ 325MG Home Pack) 1 homepack UD ONCE PO 07/11/18 21:30 07/11/18 21:31 DC 07/11/18 21:30 1 HOMEPACK ED Course 2052: The patient was evaluated in room D3. A complete history and physical exam was performed. 2055: Toradol 10 mg IM, Oxycodone HCl 5 mg PO. 2127: I reevaluated the patient. I discussed her test results and she will follow up with Dr. Catalan, [facility]. She has a walker at home and we will place her in a knee immobilizer here in the ED. 2129: Percocet 5/325 mg 1 homepack PO. Medical Decision This is a 58-year-old female who presents with knee pain. Differential diagnosis includes strain, ligamentous injury, meniscal tear, pathologic fracture. I did perform a limited focused review of portions of the patient's old chart on the electronic medical record. The patient underwent right total knee arthroplasty by Dr. Catalan in November 2017. I did evaluate the patient as noted above. I did treat patient with oxycodone. She w I did order and personally review the patient's knee x-rays as described above. I did discuss the x-ray results with patient. She was placed in a knee immobilizer. She was offered a walker but states she has one at home. She will follow with Dr. Catalan for further care and evaluation. [place] Drug Monitoring Program Search Results: patient reviewed within database, no issues identified Medication Reconcilliation Current Medication List: was personally reviewed by me Blood Pressure Screening Patient's blood pressure: Elevated blood pressure Blood pressure disposition: Referred to PCP Impression Primary Impression: Internal derangement of left knee Scribe Attestation The scribe's documentation has been prepared under my direct and personally reviewed by me in its entirety. I confirm that the note above accurately reflects all work, treatment, procedures, and medical decision making performed by me. Departure Information Dispostion Home / Self-Care Prescriptions Oxycodone Ir (Roxicodone Ir) 5 Mg Tab 5 MG PO Q4H Y for Pain, #20 TAB Prov: Grzegorz Peraza M.D. 07/11/18 Referrals Judy Capps D.O. (PCP) Patient Instructions ED Knee Pain [facility] [place], My [facility], Oxycodone tablets or capsules Additional Instructions You have been examined and treated today on an emergency basis only. This is not a substitute for, or an effort to provide, complete comprehensive medical care. It is impossible to recognize and treat all injuries or illnesses in a single emergency department visit. It is therefore important that you follow up closely with Dr. Catalan. Call as soon as possible for an appointment. Return for worsening symptoms or if you develop numbness or weakness in your leg or any other concerning symptoms.
== END 2018-07-11 21:53 | disposition home or self-care (01) ==
LOC: C.EDB 20:20 → C.EDD 21:53
DX: M23.92 Unspecified internal derangement of left knee (principal); E11.9 Type 2 diabetes mellitus without complications; Z96.651 Presence of right artificial knee joint; Z79.84 Long term (current) use of oral hypoglycemic drugs; Z79.82 Long term (current) use of aspirin; Z79.899 Other long term (current) drug therapy; Z88.8 Allergy status to other drugs, medicaments and biological substances